=== PATIENT | male | born 1955 | race Caucasian/White ===

== ENCOUNTER 2018-05-29 06:12 | Inpatient (IN) | payer OTHER | END 2018-06-01 17:22 | disposition home or self-care (01) | LOC: 4AH 05-31 22:54 → DAHIP 06:12 → 4CH 12:46 → 4BH 20:34 | PROC: 0SRD0JZ Replacement of Left Knee Joint with Synthetic Substitute, Open Approach (ICD-10-PCS; principal; 2018-05-29 07:45) | DX: M17.12 Unilateral primary osteoarthritis, left knee (principal); M21.169 Varus deformity, not elsewhere classified, unspecified knee; K58.9 Irritable bowel syndrome, unspecified; J44.9 Chronic obstructive pulmonary disease, unspecified; M54.9 Dorsalgia, unspecified; J30.2 Other seasonal allergic rhinitis; I10 Essential (primary) hypertension; F17.200 Nicotine dependence, unspecified, uncomplicated ==

== ENCOUNTER → 2024-09-02 | Outpatient (CLI) | payer OTHER ==
[~2024-09-02] MED LIST: ALBU0.63 IH; ALBU90AE IH; APIX2.5T PO; BUDE10.2 IH; CETI10TA57 PO; DICY-20 PO; DOCU250C14 PO; DULO30CA52 PO; FLUT16H NASAL; GUAI400T94 PO; HYDR-4458 PO; IOHEXOL 350 MG/ML 100ML INFUS..BTL IV ONE; LISI1TAB53 PO; OMEP20CA12 PO; SILD100T PO; TIOT4MIS2 IH; TRAZ-187 PO
--- NOTE | 2024-09-02 12:30 | HMCIMG ---
Exam Type: CT ABDOMEN/PELVIS W/CONTRAST Clinical Information: UNSPEC ABD PAIN Comparison: None Contrast: 100 cc's Isovue 370 IV, no complications or adverse reactions CT Dose Index (CTDI): 31.60 mGy Dose Length Product (DLP): 1740.80 total mGy-cm Findings: No evidence of nephro or ureterolithiasis is found. No hydronephrosis or ureteral dilatation is seen. The lung bases are clear. The stomach is unremarkable. It shows no wall thickening. No gross ulceration is seen. It is not overly distended. There are no surrounding inflammatory changes. No wall lesions are identified to suggest cancer. The spleen is unremarkable. It is not enlarged. The pancreas shows normal anatomy. It is not fatty replaced. It shows no lesions. The pancreatic duct is not dilated. The gallbladder is unremarkable. It shows no cholelithiasis. The gallbladder wall is normal in thickness. There is no pericholecystic fluid. The is no acute or chronic inflammation noted. The adrenal glands are unremarkable. There is no enlargement. No lesions are noted. The liver is unremarkable. It shows no focal masses. The appendix is unremarkable. It shows no evidence of inflammation. No appendicolith is seen. The small bowel is unremarkable. There is no evidence of dilatation to suggest obstruction. No evidence of adynamic ileus is seen. There is no small bowel wall thickening to suggest enteritis. The colon is unremarkable. The urinary bladder is unremarkable. There is no wall thickening to suggest tumor or inflammation. There are no intraluminal calculi. There are no diverticula. There is no evidence of chronic bladder outlet obstruction. There is no evidence of urinary bladder distention to suggest urinary retention. The other pelvic structures are unremarkable. The bony and vascular structures are unremarkable for the patient's age. IMPRESSION: NEGATIVE CT SCAN OF THE ABDOMEN AND PELVIS WITH ORAL AND IV CONTRAST. This study was performed using dose reduction techniques to include automated exposure control and/or adjustment of the mA and/or kV according to patient size.
== END | disposition home or self-care (01) ==
LOC: RAH 10:14
PROVIDERS: ATTEND Internal Medicine
DX: R10.9 Unspecified abdominal pain (principal)
CPT/HCPCS: 74177; Q9967